=== PATIENT | female | born 2000 | race Two or more races ===

== ENCOUNTER 2024-09-25 15:31 | Outpatient (CLI) | payer OTHER | END 2024-09-25 15:32 | disposition home or self-care (01) | LOC: PRENATAL 15:31 | PROVIDERS: ATTEND Obstetrics & Gynecology Maternal & Fetal Medicine | DX: O44.00 Complete placenta previa NOS or without hemorrhage, unspecified trimester (principal); Z14.8 Genetic carrier of other disease; Z3A.19 19 weeks gestation of pregnancy ==

== ENCOUNTER 2024-12-17 15:54 | Outpatient (CLI) | payer OTHER | END 2024-12-17 15:55 | disposition home or self-care (01) | LOC: PRENATAL 15:54 | DX: O26.849 Uterine size-date discrepancy, unspecified trimester (principal); O36.8199 Decreased fetal movements, unspecified trimester, other fetus; Z3A.31 31 weeks gestation of pregnancy ==

== ENCOUNTER 2025-01-16 08:42 | Outpatient (CLI) | payer OTHER | END 2025-01-16 08:46 | disposition home or self-care (01) | LOC: PRENATAL 08:42 | PROVIDERS: ATTEND Obstetrics & Gynecology Maternal & Fetal Medicine | DX: O26.849 Uterine size-date discrepancy, unspecified trimester (principal); O36.8199 Decreased fetal movements, unspecified trimester, other fetus; Z3A.35 35 weeks gestation of pregnancy ==